=== PATIENT | female | born 1965 | race Caucasian/White ===

== ENCOUNTER 2020-10-17 11:03 | Emergency (ER) | payer OTHER, SELFPAY ==
[2020-10-17 11:18] VITALS: BP 179/98; PULSE 89; RESP 20; TEMP 36.7; O2SAT 96; BMI 39.0
--- NOTE | 2020-10-17 11:31 | HMH.EDUTC ---
[facility] [place] Impression: Exposure to COVID-19 virus, Cough Disposition: Home, Self-Care Condition on Discharge: Good Instructions: Cough, Preventing the Spread of Coronavirus Discharge Instructions Additional Instructions: *Monitor Temp, Over the counter Motrin or Tylenol as directed/as needed Tylenol every 4 hours and Motrin every 6 hours (as long as your family doctor has told you that you can take it) for fever or pain. and straight to ER if unable to lower temp less than 101.0 after medication given *Warm salt water gargles may help to soothe the throat *Throat Lozenges *Warm fluids like tea with honey may help to soothe the throat *Sleep elevated *Humidifier/Vaporizer *Flonase 2 sprays in each nostril daily but be aware that it may take 2-3 days before you notice improvement Follow up IMMEDIATELY for new or worsening symptoms or no Noticeable improvement over the next 48-72 hours. 911 for difficulty breathing or swallowing You was tested for today for COVID19 your test result should be back in the next 24-48 hours, you may call to the [facility] later today or tomorrow to see if your test results are back and the result [phone] [facility] hours are 9am-9pm You was given a handout with instructions for Self Quarantine and Self isolation for while you wait on test results and what to do if they are positive If you are positive the Health Dept will be contacting you also Prescriptions: Albuterol Sulfate [Proventil-HFA 90mcg/puff Inh] 1 - 2 puffs IH Q4HP PRN #1 inh PRN Reason: Shortness Of Breath Transmission Status: Pending to [id number] Benzonatate [Tessalon Perle 100mg Cap*] 100 mg PO TID PRN #15 cap PRN Reason: Cough Transmission Status: Pending to [id number] Referrals: Kolby Grace MD [Primary Care Provider] - As needed Time of Disposition: 11:34 Medical Decision Making - Dani Inquiry Pt receiving controlled substance: No Dani was queried for this patient: No Vital Signs: 10/17/20 11:18 Temperature 98.0 F Temperature Source Oral Pulse Rate [Radial] 89 Respiratory Rate 20 Blood Pressure [Right Arm] 179/98 H Blood Pressure Mean [Right Arm] 125 Blood Pressure Source [Right Arm] Automatic Cuff Blood Pressure Position [Right Arm] Sitting 02 Sat by Pulse Oximetry 96 Oxygen Delivery Method Room Air Orders (Tests/Meds): ORDERS Category Date Time Status Covid-19 Nasal PCR ([facility]) Routine Lab 10/17/20 11:14 [place] [facility] [place] - General Stated complaint: covid test Time Seen by Provider: 10/17/20 11:31 Mode of Arrival: Ambulatory Source of Information: Patient Limitations: No Limitations Description of Symptoms (Recalled from Triage Doc. by RN): covid test, congetion, cough x 1 week HEENT Symptoms (Recalled from RN notes): Yes Resp Symptoms (Recalled from RN notes): No Skin Symptoms (Recalled from RN notes): No MS Symptoms (Recalled from RN notes): No Functional Status (Recalled from RN notes): wnl - History of Present Illness Provider Complaint: Patient state that she was recently around someone that tested positive for COVID State that for about a week she has been having some symtpoms off and off States that she had some runny nose, cough and body aches States that she use to have an inhaler and wanted to see if she could get one again States that it helped with her asthma and cough - Related Data Previous Rx's Medication Instructions Recorded Nebivolol HCl [Bystolic] 5 mg PO DAILY #30 tab 07/04/18 Albuterol Sulfate [Proventil-HFA 1 - 2 puffs IH Q4HP PRN #1 inh 10/17/20 90mcg/puff Inh] Benzonatate [Tessalon Perle 100mg 100 mg PO TID PRN #15 cap 10/17/20 Cap*] Allergies Allergy/AdvReac Type Severity Reaction Status Date / Time Diphenhydramine Allergy Severe S-DIFF. Uncoded 11/07/17 14:50 BREATHING From Chlordiazepoxide HCl Allergy Mild NA-NAUSEA/V Uncoded 11/07/17 14:50 OMITING - Worker's Comp Is this a Worke
[2020-10-17 11:38] VITALS: BP 179/98; PULSE 89; RESP 20; TEMP 36.7; O2SAT 96
--- NOTE | 2020-10-17 14:46 | PC.NURSE ---
Patient notified of positive COVID results. Educated on quarantine and treatment of symptoms.
== END 2020-10-17 11:45 | disposition home or self-care (01) ==
PROVIDERS: Emergency Provider Nurse Practitioner; PCP Family Medicine
DX: U07.1 COVID-19 (principal); J45.909 Unspecified asthma, uncomplicated
CPT/HCPCS: 99201; U0003